=== PATIENT | male | born 1995 | race Caucasian/White ===

== ENCOUNTER 2023-05-29 14:05 | Emergency (ER) | payer MEDICAID, SELFPAY ==
[2023-05-29] VITALS (8 sets, daily range): BP systolic 128–144; BP diastolic 79–84; PULSE 84–91; RESP 15–17; TEMP 37; O2SAT 93–100; BMI 22.4
--- NOTE | 2023-05-29 14:35 | ED.BACK1 ---
HPI - Back Pain/Injury General Chief Complaint: Back Pain/Injury Stated Complaint: BACK PAIN Time Seen by Provider: 05/29/23 14:20 Source: patient Limitations: no limitations History of Present Illness HPI Narrative: This is a 28-year-old male here for evaluation of pain in his scapular area. He is otherwise extremely healthy with no past medical or surgical history. In fact he does not have a family history except his father is a type II obese diabetic. HEENT: He was playing some basketball earlier this week and he had not played or exercise in quite some time. A day or so after the basketball he started developing this pain so that this morning when he was bending over in the shower to dry off he felt a sharp pulling type of pain in the medial border of his right scapula. He just wanted to come in and make sure it was normal. He does not have any family doctor he is visiting his father in this area but will be going back home shortly. He has not been sick with fever shakes chills shortness of breath or chest pain. Does not have any other muscle aches and pains. Has not noticed any swelling of his legs. He has not had any travel history. He has not on any medications or antibiotics. He does not use tobacco products marijuana products alcohol products and illicit drugs are completely normal. He has no history of cardiac anomalies or heart disease or syncopal episodes. Related Data Allergies Allergy/AdvReac Type Severity Reaction Status Date / Time No Known Drug Allergies Allergy Verified 05/29/23 14:15 PFSH PFSH Social History Smoking status: Never smoker Exam Constitutional Vital Signs, click to edit/add: Last Vital Signs Temp 98.6 F 05/29/23 14:10 Pulse 85 05/29/23 14:10 Resp 15 05/29/23 14:10 BP 144/79 H 05/29/23 14:10 Pulse Ox 98 05/29/23 14:10 O2 Del Method Room Air 05/29/23 14:10 Course Vital Signs Vital signs: Vital Signs Temperature 98.6 F 05/29/23 14:10 Pulse Rate 85 05/29/23 14:10 Respiratory Rate 15 05/29/23 14:10 Blood Pressure 144/79 H 05/29/23 14:10 Pulse Oximetry 98 05/29/23 14:10 Oxygen Delivery Method Room Air 05/29/23 14:10 Temperature 98.6 F 05/29/23 14:10 Pulse Rate 85 05/29/23 14:10 Respiratory Rate 15 05/29/23 14:10 Blood Pressure 144/79 H 05/29/23 14:10 Pulse Oximetry 98 05/29/23 14:10 Oxygen Delivery Method Room Air 05/29/23 14:10 MDM - Back Pain/Injury MDM Narrative Medical decision making narrative: Healthy 28-year-old with normal basic workup and physical exam here. Do not believe he needs further diagnostic testing is in the ER at this time. Clinical findings are most consistent with a thoracic strain , ice and [id number] NSAIDs were advised Discharge Plan Discharge Chief Complaint: Back Pain/Injury Clinical Impression: Acute thoracic myofascial strain Patient Disposition: Home, Self-Care Time of Disposition Decision: 16:13 Additional Instructions: Ice/pegl-vkl-uilmsez NSAIDs Referrals: Physician,Non-Staff, [Primary Care Provider] - 1 week Stand Alone Forms: Portal Instructions
--- NOTE | 2023-05-29 14:36 | ECG_ITS ---
The [facility] [place] Test Date: 2023-05-29 Pat Name: BINU GONZALEZ Department: Room: - Gender: Male [employer]: : 1995 Requested By: [id number] Order Number: [id number] Reading MD: NEGRO PAGAN Measurements Intervals [place] Rate: 83 P: 54 SD: 130 QRS: 83 QRSD: 84 T: 55 QT: 380 QTc: 420 Interpretive Statements 1100 Sinus rhythm 9110 normal ECG No previous ECG available for comparison Electronically Signed On 05-30-2023 6:37:13 EST by NEGRO PAGAN
--- NOTE | 2023-05-29 14:37 | XR_ITS ---
The [address] [address] Patient Name: BINU GONZALEZ MRN: [id number] date: 1995 Sex: M Assigned Patient Location: ER Current Patient Location: ER Accession/Order Number: [id number] Exam Date: 05/29/2023 14:48 Report Date: 05/29/2023 15:01 At the request of: ARABELLA VACA Procedure: XR chest 2V PROCEDURE: XR chest 2V DATE: 05/29/2023 1:48 PM RN CLINICAL RESEARCH COMPARISONS: None. CLINICAL INDICATION: 28 years Male Right back pain FINDINGS: The cardiomediastinal silhouette and pulmonary vasculature are within normal limits. The lungs are clear. There is no evidence of pleural effusion or pneumothorax. XR/XR chest 2V IMPRESSION: Chest radiograph is within normal limits. Electronically authenticated by: HERNANDEZ ESCOBAR Date: 05/29/2023 15:01
[2023-05-29 14:54] LABS: Basophils Percent Auto 0.4 % (0.2-2.0); Eosinophils Percent Auto 0.6 % (0.9-7.0); Hematocrit 41.7 % (42.0-54.0); Hemoglobin 14.2 g/dL (14.0-18.0); Immature Granulocytes Abs Auto 0.02 10^3/uL (0.00-0.03); Immature Granulocytes Pct Auto 0.4 % (0.0-0.5); Lymphocytes Absolute Auto 1.2 10^3/uL (1.2-3.8); Lymphocytes Percent Auto 25.4 % (20.5-60.0); Mean Corpuscular HGB Conc 34.1 g/dL (29.9-35.2); Mean Corpuscular Hemoglobin 28.4 pg (25.9-34.0); Mean Corpuscular Volume 83.4 fL (80.0-94.0); Mean Platelet Volume 9.4 fL (9.5-13.5); Monocytes Absolute Auto 0.4 10^3/uL (0.3-0.8); Monocytes Percent Auto 8.9 % (1.7-12.0); Neutrophils Absolute Auto 3.1 10^3/uL (1.4-6.5); Neutrophils Percent Auto 64.3 % (43.0-75.0); Platelet Count 140 10^3/uL (150-450); White Blood Count 4.8 10^3/uL (4.0-11.0)
[2023-05-29 15:11] LABS: Alanine Aminotransferase 21 U/L (16-63); Albumin Globulin Ratio 1.2; Albumin Level 4.4 g/dL (3.4-5.0); Alkaline Phosphatase 36 U/L (46-116); Anion Gap 14.6; Aspartate Amino Transferase 24 U/L (15-37); Bilirubin Total 0.5 mg/dL (0.2-1.0); Calcium 9.4 mg/dL (8.5-10.1); Carbon Dioxide 28.9 mmol/L (21.0-32.0); Chloride 103 mmol/L (98-107); Estimated GFR (African America >60 (>=60); Estimated GFR (Non-African Ame >60 (>=60); Globulin 3.7 g/dL; Glucose 98 mg/dL (74-106); Potassium 4.5 mmol/L (3.5-5.1); Sodium 142 mmol/L (136-145); Total Protein 8.1 g/dL (6.4-8.2); Troponin I High Sensitivity <4.0 pg/mL (4.0-76.1)
[2023-05-29 15:18] LABS: D Dimer <0.19 mg/L FEU (<=0.59)
== END 2023-05-29 16:24 | disposition home or self-care (01) ==
PROVIDERS: Emergency Provider Emergency Medicine Emergency Medical Services
DX: S29.012A Strain of muscle and tendon of back wall of thorax, initial encounter (principal); X50.9XXA Other and unspecified overexertion or strenuous movements or postures, initial encounter
CPT/HCPCS: 36415; 71046; 80053; 84484; 85025; 85378; 93005; 99285